=== PATIENT | female | born 1980 | race Caucasian/White ===

== ENCOUNTER 2017-10-04 12:11 | Emergency (ER) | payer MEDICAID ==
[2017-10-04 12:27] VITALS: BP 138/78
--- NOTE | 2017-10-04 12:51 | EDPHY ---
H & P Time Seen by Provider: 10/04/17 12:12 HPI/ROS: 36-year-old female presents complaining of left ankle pain, she states her ankles are always quite unstable however she was caring an armoire and suddenly her left ankle gave out. She presents with complaint of pain in her left ankle. Review of systems As per HPI General no fever no chills no weakness HEENT no eye pain no eye discharge. No eye redness, no sore throat Respiratory no cough, no shortness of breath Cardiac no chest pain, no peripheral edema GI no abdominal pain, no diarrhea, no constipation, no nausea, no vomiting no flank pain, no hematuria, no dysuria Musculoskeletal no myalgias, positive joint pain Heme no easy bruising, no easy bleeding Endo no polyuria, no polydipsia Skin no rashes, no pruritus Neuro no syncope, no dizziness, no headaches Psych is no suicidal ideation, no homicidal ideation Past Medical/Surgical History: Non contributory Smoking Status: Heavy smoker Physical Exam: 36-year-old female alert and oriented no acute distress nontoxic appearance, afebrile Alert and oriented in no acute distress nontoxic appearance, afebrile Atraumatic normocephalic Neck no JVD Lungs clear to auscultation, no respiratory distress Heart regular rate and rhythm Extremities no cyanosis clubbing edema Left lower extremity Positive tenderness palpation at medial malleolus, no swelling no ecchymosis, no laxity, good pulses, good capillary refill No deformity Constitutional: Initial Vital Signs Temperature (C) 37.2 C 10/04/17 12:23 Heart Rate 82 10/04/17 12:23 Respiratory Rate 16 10/04/17 12:23 Blood Pressure 138/78 H 10/04/17 12:23 O2 Sat (%) 96 10/04/17 12:23 O2 Delivery Mode Room Air Allergies/Adverse Reactions: No Known Allergies Allergy (Verified 10/04/17 12:22) Home Medications: Medication Instructions Recorded Hydrocodone/Acetaminophen 12/06/13 IBUPROFEN 12/06/13 Acyclovir 10/04/17 Medical Decision Making - Diagnostics Imaging Results: Imaging Impressions Ankle X-Ray 10/04/17 12:28 Impression: Normal. ED Course/Re-evaluation: Patient seen and evaluated for left ankle pain. X-ray negative Impression Left ankle sprain Plan Ankle stirrup Rest, ice, elevation Follow-up with primary care physician Differential Diagnosis: Differential diagnosis considered but not limited to: Ankle sprain, ankle fracture Departure - Departure Disposition: Home, Routine, Self-Care Clinical Impression: Ankle sprain Condition: Good Instructions: Ankle Sprain (ED) Referrals: Ap Rod MD [Primary Care Provider] - As per Instructions
== END 2017-10-04 13:10 | disposition home or self-care (01) ==
LOC: CED 12:11
DX: S93.402A Sprain of unspecified ligament of left ankle, initial encounter (principal); F17.200 Nicotine dependence, unspecified, uncomplicated; X50.0XXA Overexertion from strenuous movement or load, initial encounter; Y99.8 Other external cause status; Y93.89 Activity, other specified
CPT/HCPCS: 73610-PO; L4350

== ENCOUNTER 2017-12-22 13:09 | Emergency (ER) | payer MEDICAID ==
[2017-12-22 13:21] VITALS: BP 127/77
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
== END 2017-12-22 14:19 | disposition home or self-care (01) ==
LOC: CED 13:09
DX: S63.641A Sprain of metacarpophalangeal joint of right thumb, initial encounter (principal); S01.551A Open bite of lip, initial encounter; F17.200 Nicotine dependence, unspecified, uncomplicated; Y04.1XXA Assault by human bite, initial encounter; W03.XXXA Other fall on same level due to collision with another person, initial encounter; Y92.9 Unspecified place or not applicable; Y93.9 Activity, unspecified; Y99.9 Unspecified external cause status
CPT/HCPCS: 73130-PO; L3807